=== PATIENT | female | born 1960 | race Caucasian/White ===

== ENCOUNTER 2018-12-24 09:28 | Day surgery (SDC) | payer OTHER ==
[~2018-12-24] VITALS: Ht 160 cm; Wt 77.6 kg
[~2018-12-24 09:28] MED LIST: ASPI-1821 PO; LISI-420 PO; [UNRECOGNIZED DRUG - CODE] PO
[2018-12-24] MEDS ORDERED: NEOSTIGMINE 1:1000 10 MG/10 ML VIAL ONE (11:35)
[2018-12-24] MEDS ORDERED: KETOROLAC 30 MG/ML VIAL ONE (11:35)
[2018-12-24] MEDS ORDERED: ePHEDrine 50 MG/ML VIAL ONE (11:35)
[2018-12-24] MEDS ORDERED: LIDOCAINE 2% 100 MG/5 ML SYR IVP ONE (11:35)
[2018-12-24] MEDS ORDERED: PROPOFOL 200 MG/20 ML VIAL IV ONE (11:35)
[2018-12-24] MEDS ORDERED: DEXAMETHASONE 4 MG/ML VIAL ONE (11:35)
[2018-12-24] MEDS ORDERED: ROCURONIUM 50 MG/5 ML VIAL IV ONE (11:35)
[2018-12-24] MEDS ORDERED: SEVOFLURANE 250 ML BTL INH ONE (11:35)
[2018-12-24] MEDS ORDERED: ONDANSETRON 4 MG/2 ML VIAL ONE (11:35)
[2018-12-24] MEDS ORDERED: GLYCOPYRROLATE 0.2 MG/ML VIAL ONE (11:35)
[2018-12-24] MEDS ORDERED: fentaNYL 0.05 MG/ML VIAL ONE ×2 (11:51→13:09)
[2018-12-24] MEDS ORDERED: MIDAZOLAM 2 MG/2 ML VIAL ONE (11:51)
[2018-12-24] MEDS ORDERED: BUPIVACAINE-MPF 0.25% 30 ML VIAL INJ ONE (11:55)
[2018-12-24] MEDS ORDERED: ceFAZolin 1,000 MG VIAL ONE (11:55)
[2018-12-24] MEDS ORDERED: ONDANSETRON 4 MG/2 ML VIAL IVP PRN (12:35)
[2018-12-24] MEDS ORDERED: HYDROmorphone 1 MG/ML AMP IVP PRN ×2 (12:35→14:05)
[2018-12-24] MEDS ORDERED: NACL 0.9% 1,000 ML IV SCH (14:02)
[2018-12-24] MEDS: HYDROmorphone PFS 2 MG/ML SYR ONE ×4 (14:04→14:34)
[2018-12-24] MEDS ORDERED: MORPHINE SULFATE 2 MG/ML SYR IVP PRN (14:05)
[2018-12-24] MEDS ORDERED: HYDROcodone/APAP 5/325 MG 1 TAB TAB PO PRN (14:05)
[2018-12-24] MEDS ORDERED: MORPHINE SULFATE 4 MG/ML SYR IV PRN (14:05)
[2018-12-24] MEDS ORDERED: ACETAMINOPHEN 325 MG TAB PO PRN (14:05)
[2018-12-24] MEDS ORDERED: ONDANSETRON 4 MG/2 ML VIAL IV PRN (14:05)
[2018-12-24] MEDS ORDERED: MORPHINE SULFATE 4 MG/ML SYR ONE (15:12)
== END 2018-12-24 17:03 | disposition home or self-care (01) ==
LOC: MDS 09:28 → MMU 09:28 → MDS 17:03
PROVIDERS: ATTEND Surgery
DX: K43.6 Other and unspecified ventral hernia with obstruction, without gangrene (principal); I10 Essential (primary) hypertension; F17.210 Nicotine dependence, cigarettes, uncomplicated; F10.21 Alcohol dependence, in remission; E66.9 Obesity, unspecified; B19.20 Unspecified viral hepatitis C without hepatic coma; Z90.49 Acquired absence of other specified parts of digestive tract; Z79.82 Long term (current) use of aspirin; Z79.899 Other long term (current) drug therapy; Z98.890 Other specified postprocedural states; Z86.73 Personal history of transient ischemic attack (TIA), and cerebral infarction without residual deficits; Z72.89 Other problems related to lifestyle
CPT/HCPCS: 49561; 49568; 71045; 88302; C1781; J0690; J1100; J1170; J1885; J2001; J2250; J2270; J2405; J2704; J2710; J3010; J3490; J7060; J7120; Q0092